=== PATIENT | female | born 1995 | race American Indian/Alaskan Native ===

== ENCOUNTER 2016-05-28 22:44 | Emergency (ER) | payer OTHER ==
[2016-05-28 22:44] VITALS: BMI 22.1
[2016-05-28] MEDS ORDERED: Aspirin 325 mg EC Tablets PO STA (23:42)
[2016-05-28] MEDS ORDERED: Aspirin 325 mg EC Tablets PO ONE (23:48)
--- NOTE | 2016-05-28 23:57 | C.PDOC ---
History Of Present Illness The patient, a 20 y/o female, presents to the ED for evaluation of left-sided chest pain which began around 4 days ago. Patient states she was evaluated by her PMD yesterday but did not discuss her chest pain at the time. Patient denies shortness of breath, nausea, vomiting, and extremity numbness/weakness. Time Seen by Provider: 05/28/16 23:21 Chief Complaint (Nursing): Chest Pain History Per: Patient History/Exam Limitations: no limitations Onset/Duration Of Symptoms: Days (4) Current Symptoms Are (Timing): Still Present Quality: "Pain" Associated Symptoms: denies: Nausea Additional History Per: Patient Past Medical History Reviewed: Historical Data, Nursing Documentation, Vital Signs Vital Signs: Last Vital Signs Temp 98.2 F 05/28/16 22:49 Pulse 113 H 05/28/16 22:49 Resp 16 05/28/16 22:49 BP 128/89 05/28/16 22:49 Pulse Ox 100 05/29/16 00:03 - Medical History PMH: Back Problems, Gastritis Surgical History: No Surg Hx Family History: States: Unknown Family Hx - Social History Hx Alcohol Use: No Hx Substance Use: No - Immunization History Hx Tetanus Toxoid Vaccination: No Hx Influenza Vaccination: Yes Hx Pneumococcal Vaccination: No Review Of Systems Except As Marked, All Systems Reviewed And Found Negative. Cardiovascular: Positive for: Chest Pain (left-sided ) Respiratory: Negative for: Shortness of Breath Gastrointestinal: Negative for: Nausea, Vomiting Neurological: Negative for: Weakness, Numbness Physical Exam - Physical Exam Appears: Non-toxic, No Acute Distress Skin: Normal Color, Warm, Dry Head: Atraumatic, Normacephalic Eye(s): bilateral: PERRL, EOMI, Other (+dilated pupils ) Oral Mucosa: Moist, No Other (alcohol on breath ) Neck: Normal ROM, Supple Chest: Symmetrical, No Deformity, No Tenderness, Other (Extrusion Technician: Rochelle Greer RN ) Cardiovascular: Rhythm Regular, No Murmur Respiratory: Normal Breath Sounds, No Rales, No Rhonchi, No Wheezing Gastrointestinal/Abdominal: Soft, No Tenderness, No Guarding, No Rebound Back: Normal Inspection, No Vertebral Tenderness, No Paraspinal Tenderness Extremity: Normal ROM, Capillary Refill (less than 2 seconds ) Neurological/Psych: Oriented x3, Slow To Respond With Command, Other (+flat affect ) Gait: Steady ED Course And Treatment - Laboratory Results Result Diagrams: 05/28/16 23:55 05/28/16 23:55 Lab Interpretation: Normal (trop neg, etoh neg) O2 Sat by Pulse Oximetry: 100 (on RA) Pulse Ox Interpretation: Normal Progress Note: labs, EKG, and CXR ordered and reviewed. Patient received Aspirin PO. Review of prior recrods shows that patient has had three previous ED visits concerning complaint of chest pain. Patient was previously evaluated on 12/18/15, 03/09/16 and 04/03/16. [place] SERVER DEVELOPER reviewed: Patient has received multiple prescriptions for Tramadol, Alprazolam, and Tylenol no. 3. Reevaluation Time: 00:24 Reassessment Condition: Improved (pt stuporous, asleep, no pain) Medical Decision Making Medical Decision Making: pt with many chronic pain complaints and 6 controlled substance prescriptions from 5 providers in the past 4 months. tonight c/o L chest discomfort but did not mention it to her PMD yesterday Consider chronic pain issues vs drug seeking (dilated pupils and stuperous) Unable/unwilling to provide urine sample for preg/UDS prior eval's with CTA, LS spine all wnl LOW susp of cardiac issues in this 20 y/o woman. Disposition Doctor Will See Patient In The: Office Counseled Patient/Family Regarding: Studies Performed, Diagnosis - Disposition Disposition: HOME/ ROUTINE Disposition Time: 00:28 Condition: GOOD - Clinical Impression Clinical Impression: Chest discomfort, Chronic pain - Scribe Statement The provider has reviewed the documentation as recorded by the Tadibe (Carlie Luke) Provider Attestation: All medical record entries made by the Tadibe were at my direction and personally dictated by me. I have reviewed the chart and agree that the record accurately reflects my personal performance of the history, physical exam, medical decision making, and the department course for this patient. I have also personally directed, reviewed, and agree with the discharge instructions and disposition.
[2016-05-28 23:58] LABS: BASO % 0.6 % (0.0-2.0); EOS # 0.1 K/uL (0.0-0.7); EOS % 1.4 % (0.0-4.0); HEMATOCRIT 33.8 % (34.0-47.0); LYMPH # 2.4 K/uL (1.0-4.3); MEAN CORPUSCULAR HEMOGLOBIN 30.3 pg (27.0-31.0); MEAN CORPUSCULAR HGB CONC 32.6 g/dL (33.0-37.0); MEAN PLATELET VOLUME 10.2 fL (7.2-11.7); MONO # 0.3 K/uL (0.0-0.8); MONO % 4.3 % (0.0-10.0); WHITE BLOOD COUNT 6.7 K/uL (4.8-10.8)
[2016-05-29] MEDS ORDERED: Nitroglycerin 2% Ointment Foilpak UD TOP STA (00:02)
[2016-05-29 00:06] LABS: CHLORIDE 102 mmol/L (98-107); POTASSIUM 3.3 mmol/L (3.6-5.2); SODIUM 140 mmol/L (132-148)
[2016-05-29 00:08] LABS: ALB/GLOB RATIO 1.4 (1.0-2.1); ALKALINE PHOSPHATASE 49 U/L (38-126); AST/SGOT 21 U/L (14-36); BILIRUBIN,TOTAL 0.4 mg/dL (0.2-1.3); BLOOD UREA NITROGEN 13 mg/dL (7-17); CARBON DIOXIDE 23 mmol/L (22-30); GFR AFRICAN-AMERICAN > 60; TOTAL PROTEIN 8.3 g/dL (6.3-8.3)
[2016-05-29 00:09] LABS: ALCOHOL SERUM < 10 mg/dl (0-10); ALT/SGPT 16 U/L (9-52); CALCIUM 8.8 mg/dl (8.6-10.4); GLUCOSE,RANDOM 88 mg/dL (65-105)
[2016-05-29] MEDS ORDERED: Labetalol 300 MG in Dextrose 5% In Water 240 ML IV SCH (00:15)
[2016-05-29 00:40] VITALS: BP 125/87; PULSE 99; RESP 18; TEMP 98.3; O2SAT 99
--- NOTE | 2016-05-29 09:21 | RAD ---
PROCEDURE: CHEST RADIOGRAPH, 1 VIEW HISTORY: SOB COMPARISON: 04/03/2016 FINDINGS: LUNGS: Clear. PLEURA: No pneumothorax or pleural fluid seen. CARDIOVASCULAR: Normal. OSSEOUS STRUCTURES: No significant abnormalities. VISUALIZED UPPER ABDOMEN: Normal. OTHER FINDINGS: None. IMPRESSION: No active disease.
--- NOTE | 2016-05-30 18:06 | CARD ---
APPROVED REPORT EKG Measurement Heart [id number] CO [id number] <Conclusion> Normal sinus rhythm ST & T wave abnormality, consider inferior ischemia Prolonged QT Abnormal ECG
== END 2016-05-29 00:40 | disposition home or self-care (01) ==
LOC: C.ER 22:44
DX: R07.89 Other chest pain (principal); G89.29 Other chronic pain